=== PATIENT | female | born 1935 | race Caucasian/White ===

== ENCOUNTER 2016-11-03 01:34 | Inpatient (IN) | payer MEDICARE ==
[~2016-11-03] VITALS: Ht 165.1 cm; Wt 71.2 kg
[2016-11-03] MEDS ORDERED: CALC0.25 PO (01:57)
[2016-11-03 02:43] LABS: HEMATOCRIT 40.2 % (34.6-47.8); HEMOGLOBIN 13.5 g/dL (11.7-16.4); WHITE BLOOD COUNT 5.5 x10^3/uL (3.4-10)
[2016-11-03 02:52] LABS: BLOOD UREA NITROGEN 10 mg/dL (7-18)
[2016-11-03 02:57] LABS: ASPARTATE AMINO TRANSFERASE 42 U/L (15-37)
[2016-11-03] MEDS ORDERED: ACETAMINOPHEN 325 MG TABLET PO PRN (04:30)
[2016-11-03] MEDS ORDERED: DOCUSATE 100 MG CAPSULE PO PRN (04:30)
[2016-11-03] MEDS ORDERED: ONDANSETRON 2MG/ML, 2ML IVPush PRN (04:30)
[2016-11-03] MEDS: KETOROLAC 30 MG/1 ML IVPush PRN ×2 (05:44→16:20)
[2016-11-03 05:48] VITALS: BP 148/80
[2016-11-03] MEDS: SODIUM CHLORIDE FLUSH 10ML SYR IVF SCH (06:18)
[2016-11-03] MEDS: SODIUM CHLORIDE 0.9% 1,000 ML IV SCH (06:19)
[2016-11-03 08:00] VITALS: BP 121/70
[2016-11-03] MEDS: CALCITRIOL 0.25 MCG CAPSULE PO SCH (10:39)
[2016-11-03] MEDS: LACTULOSE 10 GM/15 ML UDC PO SCH ×2 (10:40→20:17)
[2016-11-03 14:41] VITALS: BP 124/74
[2016-11-03] MEDS ORDERED: HYDROcodone/APAP 5/325 TABLET PO PRN (17:30)
[2016-11-03] MEDS: ENOXAPARIN 40 MG/0.4 ML SQ SCH (18:36)
[2016-11-03 19:31] VITALS: BP 138/84
[2016-11-03] MEDS: OXYcodone IR 5MG TABLET PO PRN (22:07)
[2016-11-04] MEDS: OXYcodone IR 5MG TABLET PO PRN (02:28)
[2016-11-04] MEDS: SODIUM CHLORIDE 0.9% 1,000 ML IV SCH ×2 (02:28→17:04)
[2016-11-04 02:30] VITALS: BP 116/69
[2016-11-04] MEDS: SODIUM CHLORIDE FLUSH 10ML SYR IVF SCH ×3 (02:30→21:00)
[2016-11-04 07:15] VITALS: BP 127/74
[2016-11-04] MEDS: LACTULOSE 10 GM/15 ML UDC PO SCH ×2 (09:49→19:30)
[2016-11-04] MEDS: CALCITRIOL 0.25 MCG CAPSULE PO SCH (09:49)
[2016-11-04] MEDS: KETOROLAC 30 MG/1 ML IVPush PRN ×2 (10:16→21:48)
[2016-11-04 16:10] VITALS: BP 134/77
[2016-11-04] MEDS: ENOXAPARIN 40 MG/0.4 ML SQ SCH (17:17)
[2016-11-04 19:45] VITALS: BP 124/75
[2016-11-05 01:46] VITALS: BP 150/88
[2016-11-05] MEDS: OXYcodone IR 5MG TABLET PO PRN (01:59)
[2016-11-05] MEDS: SODIUM CHLORIDE 0.9% 1,000 ML IV SCH (06:07)
[2016-11-05] MEDS: KETOROLAC 30 MG/1 ML IVPush PRN (06:12)
[2016-11-05 08:25] VITALS: BP 158/83
[2016-11-05] MEDS: CALCITRIOL 0.25 MCG CAPSULE PO SCH (08:58)
[2016-11-05] MEDS: LACTULOSE 10 GM/15 ML UDC PO SCH (08:59)
[2016-11-05] MEDS: SODIUM CHLORIDE FLUSH 10ML SYR IVF SCH (09:00)
[2016-11-05 12:15] VITALS: BP 166/97
[2016-11-05 12:35] VITALS: BP 179/103
[2016-11-05] MEDS ORDERED: IBUP-11 PO (13:22)
== END 2016-11-05 15:44 | disposition home or self-care (01) | DRG 543 ==
LOC: ED 02:38 → SUATTDRO 04:20 → EDIP 04:45 → 3NW 05:11
PROVIDERS: ADMIT Hospitalist; ATTEND Hospitalist
DX: M48.56XA Collapsed vertebra, not elsewhere classified, lumbar region, initial encounter for fracture (principal); E44.0 Moderate protein-calorie malnutrition; E86.0 Dehydration; M81.0 Age-related osteoporosis without current pathological fracture; M54.41 Lumbago with sciatica, right side; M54.42 Lumbago with sciatica, left side; M43.10 Spondylolisthesis, site unspecified; M19.90 Unspecified osteoarthritis, unspecified site; I10 Essential (primary) hypertension; M48.06 Spinal stenosis, lumbar region
CPT/HCPCS: 36415; 72110; 72148; 72195; 80053; 81003; 82550; 85025; 99285; J1650; J1885; J7030

== ENCOUNTER 2016-11-08 04:49 | Inpatient (IN) | payer MEDICARE ==
[~2016-11-08] VITALS: Ht 165.1 cm; Wt 72.9 kg
[~2016-11-08 04:49] MED LIST: CALC0.25 PO; IBUP-11 PO
[2016-11-08] MEDS ORDERED: SODIUM CHLORIDE FLUSH 10ML SYR IVF ONE (06:00)
[2016-11-08] MEDS ORDERED: ONDANSETRON 2MG/ML, 2ML IVPush ONE (06:00)
[2016-11-08] MEDS ORDERED: METHOCARBAMOL 750 MG TABLET PO ONE (06:00)
[2016-11-08] MEDS ORDERED: MORPHINE SULFATE 4 MG/ML, 1ML IVPush PRN ×2 (06:00→08:30)
[2016-11-08] MEDS ORDERED: MORPHINE SULFATE 4 MG/ML, 1ML ONE (06:07)
[2016-11-08] MEDS ORDERED: METHOCARBAMOL 750 MG TABLET ONE (06:07)
[2016-11-08] MEDS ORDERED: ONDANSETRON 2MG/ML, 2ML ONE (06:07)
[2016-11-08 06:39] LABS: HEMATOCRIT 43.9 % (34.6-47.8); HEMOGLOBIN 14.9 g/dL (11.7-16.4); WHITE BLOOD COUNT 6.3 x10^3/uL (3.4-10)
[2016-11-08 06:47] LABS: BLOOD UREA NITROGEN 12 mg/dL (7-18)
[2016-11-08 07:01] LABS: PATH.CAST-FLAG NOT PRESENT; SPERM-FLAG NOT PRESENT; SRC-FLAG NOT PRESENT; XTAL-FLAG NOT PRESENT; YLC-FLAG NOT PRESENT
[2016-11-08] MEDS ORDERED: SODIUM CHLORIDE 0.9% 1,000 ML IV ONE (08:10)
[2016-11-08] MEDS ORDERED: SODIUM CHLORIDE FLUSH 10ML SYR IVF PRN (08:30)
[2016-11-08] MEDS ORDERED: ONDANSETRON 2MG/ML, 2ML IVPush PRN (08:30)
[2016-11-08] MEDS ORDERED: ONDANSETRON ODT 4 MG PO PRN (10:30)
[2016-11-08] MEDS ORDERED: MORPHINE SULFATE 4 MG/ML, 1ML IV PRN (10:30)
[2016-11-08] MEDS ORDERED: ONDANSETRON 2MG/ML, 2ML IV PRN (10:30)
[2016-11-08 11:10] VITALS: BP 116/68
[2016-11-08] MEDS: SENNA/DOCUSATE TABLET PO SCH (13:58)
[2016-11-08 16:00] VITALS: BP 101/63
[2016-11-08 19:17] VITALS: BP 109/65
[2016-11-09] MEDS: NS + 20MEQ KCL 1,000 ML IV SCH ×5 (00:18→19:48)
[2016-11-09 02:24] VITALS: BP 114/70
[2016-11-09] MEDS ORDERED: THROMBIN 5,000 UNIT VIAL TP ONE (07:11)
[2016-11-09] MEDS ORDERED: BUPIVACAINE/PF 0.5% ONE (07:11)
[2016-11-09] MEDS ORDERED: BACITRACIN 50,000 UNIT ONE (07:12)
[2016-11-09] MEDS ORDERED: EPINEPHRINE 1 MG/ML, 1ML ONE (07:12)
[2016-11-09] MEDS ORDERED: HYDROmorphone 1 MG/ML, 1ML ONE (07:26)
[2016-11-09] MEDS ORDERED: FENTANYL PF 100 MCG/2ML ONE (07:26)
[2016-11-09] MEDS ORDERED: CEFAZOLIN 1,000 MG ONE (07:27)
[2016-11-09] MEDS ORDERED: GLYCOPYRROLATE 0.2MG/1ML, 5ML ONE (07:27)
[2016-11-09] MEDS ORDERED: NEOSTIGMINE 1 MG/ML, 10ML ONE (07:27)
[2016-11-09] MEDS ORDERED: DEXAMETHASONE 4 MG/ML, 1ML ONE (07:27)
[2016-11-09] MEDS ORDERED: PROPOFOL 10 MG/ML, 20ML ONE (07:27)
[2016-11-09] MEDS ORDERED: ONDANSETRON 2MG/ML, 2ML ONE (07:27)
[2016-11-09] MEDS ORDERED: PHENYLEPHRINE 10 MG/ML ONE (07:27)
[2016-11-09] MEDS ORDERED: ROCURONIUM 10 MG/ML ONE (07:27)
[2016-11-09] MEDS ORDERED: LABETALOL 5MG/ML, 20ML IV PRN (08:00)
[2016-11-09] MEDS ORDERED: ALBUTEROL SULFATE 2.5 MG/3 ML NPPB PRN (08:00)
[2016-11-09] MEDS ORDERED: FENTANYL PF 100 MCG/2ML IV PRN (08:00)
[2016-11-09] MEDS ORDERED: ONDANSETRON 2MG/ML, 2ML IVPush PRN ×2 (08:00→10:00)
[2016-11-09] MEDS ORDERED: METOPROLOL 1 MG/ML, 5ML IV PRN (08:00)
[2016-11-09] MEDS ORDERED: HYDROmorphone 1 MG/ML, 1ML IV PRN (08:00)
[2016-11-09] MEDS ORDERED: OXYcodone 5 MG/5 ML ORAL.SOL UDC PO PRN (08:00)
[2016-11-09] MEDS ORDERED: ACETAMINOPHEN 325 MG TABLET PO PRN (08:00)
[2016-11-09] MEDS ORDERED: hydrALAzine 20 MG/ML, 1ML IV PRN (08:00)
[2016-11-09] MEDS ORDERED: EPHEDRINE 50 MG/ML, 1ML IVPush PRN (08:00)
[2016-11-09] MEDS ORDERED: PROMETHAZINE 25 MG/ML, 1ML IV PRN (08:00)
[2016-11-09] MEDS ORDERED: BUPIVACAINE/PF-EPI 0.5% 1:200K IM ONE (08:03)
[2016-11-09] MEDS: SENNA/DOCUSATE TABLET PO SCH (09:00)
[2016-11-09] MEDS ORDERED: NEOSPORIN OINT, 15GM ONE (09:16)
[2016-11-09] MEDS ORDERED: OXYcodone 5 MG/5 ML ORAL.SOL UDC ONE (09:51)
[2016-11-09] MEDS ORDERED: ACETAMINOPHEN 650 MG/20.3 ML UDC ONE (09:51)
[2016-11-09] MEDS ORDERED: SENNA/DOCUSATE TABLET PO PRN (10:00)
[2016-11-09] MEDS ORDERED: HYDROmorphone 1 MG/ML, 1ML IVPush PRN (10:00)
[2016-11-09] MEDS ORDERED: HYDROmorphone 2MG TABLET PO PRN (10:00)
[2016-11-09] MEDS ORDERED: OXYcodone/APAP 5/325MG TABLET PO PRN (10:00)
[2016-11-09] MEDS ORDERED: PHARMACY MAY ADJ FOR RENAL FX MC PRN (10:00)
[2016-11-09] MEDS ORDERED: DIPHENHYDRAMINE 50 MG/ML, 1ML IVPush PRN (10:00)
[2016-11-09 13:31] VITALS: BP 120/63
[2016-11-09] MEDS: CEFAZOLIN PMX 1GM/50ML 50 ML IVPB SCH (16:49)
[2016-11-09 20:10] VITALS: BP 106/61
[2016-11-09] MEDS: ACETAMINOPHEN 325 MG TABLET PO PRN (21:26)
[2016-11-09 23:48] VITALS: BP 112/70
[2016-11-10] MEDS: CEFAZOLIN PMX 1GM/50ML 50 ML IVPB SCH (00:12)
[2016-11-10] MEDS: HYDROcodone/APAP 5/325 TABLET PO PRN ×3 (02:49→20:04)
[2016-11-10 04:29] VITALS: BP 109/58
[2016-11-10] MEDS: NS + 20MEQ KCL 1,000 ML IV SCH ×3 (04:49→16:00)
[2016-11-10 07:55] VITALS: BP 120/89
[2016-11-10] MEDS: SENNA/DOCUSATE TABLET PO SCH (09:05)
[2016-11-10] MEDS: ACETAMINOPHEN 325 MG TABLET PO PRN (09:05)
[2016-11-10 09:41] LABS: HEMATOCRIT 37.9 % (34.6-47.8); HEMOGLOBIN 12.8 g/dL (11.7-16.4)
[2016-11-10 09:50] LABS: BLOOD UREA NITROGEN 13 mg/dL (7-18)
[2016-11-10 13:21] VITALS: BP 103/62
[2016-11-10] MEDS ORDERED: HYDR-3240 PO (16:08)
[2016-11-10] MEDS ORDERED: TIZA4TAB9 PO (16:08)
[2016-11-10 20:08] VITALS: BP 122/80
[2016-11-11] MEDS: HYDROcodone/APAP 5/325 TABLET PO PRN ×2 (02:50→08:51)
[2016-11-11 03:54] VITALS: BP 118/71
[2016-11-11] MEDS: SENNA/DOCUSATE TABLET PO SCH (07:52)
[2016-11-11 07:54] VITALS: BP 124/67
[2016-11-11 08:51] VITALS: BP 100/62
[2016-11-11] MEDS ORDERED: GABA300C10 PO (09:03)
[2016-11-11] MEDS ORDERED: MELO7.5T31 PO (09:04)
[2016-11-11] MEDS ORDERED: METHOCARBAMOL 750 MG TABLET PO SCH (18:00)
== END 2016-11-11 09:16 | disposition home or self-care (01) | DRG 516 ==
LOC: ED 07:51 → EDIP 08:10 → 4NOR 09:38 → DCLOUNGE 11-11 09:00
PROVIDERS: ADMIT Neurological Surgery; ATTEND Neurological Surgery
PROC: 01NB0ZZ Release Lumbar Nerve, Open Approach (ICD-10-PCS; principal; 2016-11-09 07:30)
DX: M48.06 Spinal stenosis, lumbar region (principal); M48.56XA Collapsed vertebra, not elsewhere classified, lumbar region, initial encounter for fracture; M19.90 Unspecified osteoarthritis, unspecified site; M54.16 Radiculopathy, lumbar region; Z87.891 Personal history of nicotine dependence
CPT/HCPCS: 36415; 71010; 72100; 80048; 81001; 82040; 85025; 85347; 85384; 85576; 85610; 85730; 87086; 93005; 96374; 96375; J0171; J0690; J1100; J1170; J2405; J2704; J2710; J3010; J3480; J3490; Q0162; J2370; J7030